=== PATIENT | male | born 1970 | race Caucasian/White ===

== ENCOUNTER 2019-01-16 14:13 | Emergency (ER) | payer BC ==
--- NOTE | 2019-01-16 15:00 | EDM.PDOC ---
ED HPI GENERAL MEDICAL PROBLEM - General Chief Complaint: Lower Extremity Injury/Pain Stated Complaint: RT FOOT INJURY Time Seen by Provider: 01/16/19 14:27 Source of Information: Reports: Patient, RN Notes Reviewed History Limitations: Reports: No Limitations - History of Present Illness INITIAL COMMENTS - FREE TEXT/NARRATIVE: Patient is a 48 her old male who presents to the ED for the evaluation of a right foot injury. The patient states that on Sunday he was working outdoors with an auger when someone hit the wrong switch in the auger started moving, and he tripped over it to avoid being hit by it, as this was an electric power auger. He did note a mild abrasion to the top of his right foot and does have some swelling into his right foot. He states that he hasn't been able to bear much weight on this and has been using crutches. He did try to go to the [facility] and they advised him to come to the ER for further evaluation. He has not been taking any pain medications for pain for this, however he has been icing and elevating the extremity. The patient knows that he is up-to-date on his tetanus in last 10 years but is unsure if it is within the last 5. He would rate his pain at a 7 out of 10 today. There is also no bruising noted to the right dorsum of his foot. Right Feet Pain Score (Numeric/FACES): 7 - Related Data Allergies Allergy/AdvReac Type Severity Reaction Status Date / Time No Known Allergies Allergy Verified 01/16/19 14:28 Home Meds: Home Meds . [No Known Home Meds] 01/16/19 [History] Past Medical History - Past Health History Medical/Surgical History: Denies Medical/Surgical History Social & Family History - Tobacco Use Smoking Status *Q: Current Every Day Smoker Years of Tobacco use: 20 Packs/Tins Daily: 0.7 - Caffeine Use Caffeine Use: Reports: Soda, Tea - Recreational Drug Use Recreational Drug Use: No Review of Systems - Review of Systems Review Of Systems: See Below Constitutional: Reports: No Symptoms Eyes: Reports: No Symptoms Ears: Reports: No Symptoms Nose: Reports: No Symptoms Mouth/Throat: Reports: No Symptoms Respiratory: Reports: No Symptoms Cardiovascular: Reports: No Symptoms GI/Abdominal: Reports: No Symptoms Genitourinary: Reports: No Symptoms Musculoskeletal: Reports: Foot Pain (right mid foot) Skin: Reports: No Symptoms Neurological: Reports: No Symptoms Psychiatric: Reports: No Symptoms ED EXAM, GENERAL - Physical Exam Exam: See Below Exam Limited By: No Limitations General Appearance: Alert, WD/WN, No Apparent Distress Eye Exam: Bilateral Eye: Normal Inspection Ears: Normal External Exam Nose: Normal Inspection Throat/Mouth: Normal Inspection Head: Atraumatic, Normocephalic Neck: Normal Inspection Respiratory/Chest: No Respiratory Distress, Lungs Clear, Normal Breath Sounds, No Accessory Muscle Use, Chest Non-Tender Cardiovascular: Normal Peripheral Pulses, Regular Rate, Rhythm, No Murmur Peripheral Pulses: 2+: Dorsalis Pedis (R) (Hard to appreciate due to swelling, but is present), 3+: Dorsalis Pedis (L) Extremities: Normal Capillary Refill, Limited Range of Motion (d/t pain in right foot). No: Mottled, Pallor Neurological: Alert, Oriented, Normal Cognition, No Motor/Sensory Deficits Psychiatric: Normal Affect, Normal Mood Skin Exam: Warm, Dry, Normal Color, No Rash, Other (abrasion to dorsum of right midfoot) ED TRAUMA EXTREMITY PROCEDURES - Splinting Right Lower Extremity Splint Site: right lower extremity Pre-Procedure NV Status: Normal Post-Procedure NV Status: Normal Splint Material: Fiberglass Splint Design: Posterior (short leg) Applied & Form Fitted By: Provider (with [employer]-student) Provider Post-Splint Application NV Check: NV Status Normal, Good Position Complications: No Course - Vital Signs Last Recorded V/S: Last Vital Signs Temp 97.1 F 01/16/19 14:28 Pulse 96 01/16/19 14:28 Resp 20 01/16/19 14:28 BP 147/94 H 01/16/19 14:28 Pulse Ox 99 01/16/19 14:28 - Orders/Labs/Meds Meds: Medications Discontinued Medications Generic Name Dose Route Start Last Admin Trade Name Freq PRN Reason Stop Dose Admin Ketorolac Tromethamine 30 mg 01/16/19 15:11 01/16/19 15:21 Toradol IM 01/16/19 15:12 Not Given ONETIME ONE - Re-Assessments/Exams Free Text/Narrative Re-Assessment/Exam: 01/16/19 15:06 Patient presents to the ED for the evaluation of a right foot injury. I did order a right foot x-ray to be done to further evaluate, this does demonstrate a second third and fourth linear metatarsal breaks, consistent with a Lisfranc fracture in nature. These do appear well aligned however. This x-ray was reviewed with Dr. Stack as well. I will splint the patient's foot and recommend that he continues to be nonweightbearing until he is evaluated by orthopedics and is told otherwise. Departure - Departure Time of Disposition: 15:09 Disposition: Home, Self-Care 01 Condition: Fair Clinical Impression: Closed fracture of metatarsal bone Metatarsal fracture Qualifiers: Encounter type: initial encounter Metatarsal bone: second Fracture type: closed Fracture alignment: nondisplaced Laterality: right Qualified Code(s): S92.324A - Nondisplaced fracture of second metatarsal bone, right foot, initial encounter for closed fracture Fx metatarsal-closed Qualifiers: Encounter type: initial encounter Metatarsal bone: third Fracture alignment: nondisplaced Laterality: right Qualified Code(s): S92.334A - Nondisplaced fracture of third metatarsal bone, right foot, initial encounter for closed fracture - Discharge Information *PRESCRIPTION DRUG MONITORING PROGRAM REVIEWED*: No *COPY OF PRESCRIPTION DRUG MONITORING REPORT IN PATIENT MAXIMO: No Instructions: Crutch Use, Adult, [id number], Lisfranc Midfoot Injury, Pain Medicine Instructions, [id number] Referrals: Barbara Paredes NP [Primary Care Provider] - Forms: ED Department Discharge Additional Instructions: You have been evaluated in the ED for your right foot pain. Your x-ray demonstrated that you have fractured her second, third, fourth metatarsals. These are the bones in your midfoot. This is consistent with a Lisfranc fracture, you will need to be completely nonweightbearing with crutch use to allow this to heal appropriately, and so that you do not have to have foot surgery. Please use ice as tolerated to the affected area. These elevate the leg for further pain relief. You may take Tylenol 500 mg or ibuprofen 600mg q6 hrs for pain relief. Do not exceed 4000mg tylenol, Do not exceed 3200mg ibuprofen in a 24 hour time period. Please call Ortho for follow-up and further evaluation with Dr. Bridger Palafox, at the [facility] in [facility] [place]. The telephone number is [phone]. Please call and set up an appointment as soon as possible for further management. Please keep the splint in place until you are evaluated by Dr. Pal[facility]. Please return to ED if your symptoms should change or worsen.
[2019-01-16] MEDS ORDERED: Ketorolac 30 MG/ML SDV IM ONE (15:11)
--- NOTE | 2019-01-16 15:45 | CR ---
Right foot: Four views of the right foot were obtained. Comparison: No prior foot exam. Minimal plantar spur is noted. Very minimal osteophytes are noted within the first MTP joint. Nondisplaced fractures are seen within the base of the second, third and fourth metatarsals. No additional fracture or other abnormality is seen. Soft tissue swelling is noted. Impression: 1. Nondisplaced fractures within the base of the second, third and fourth metatarsals. 2. Other incidental findings. Diagnostic code #3
== END 2019-01-16 15:46 | disposition home or self-care (01) ==
LOC: SUPCPDRO 14:13 → JD.ED 14:13
DX: S92.334A Nondisplaced fracture of third metatarsal bone, right foot, initial encounter for closed fracture (principal); S92.324A Nondisplaced fracture of second metatarsal bone, right foot, initial encounter for closed fracture; F17.210 Nicotine dependence, cigarettes, uncomplicated; W18.09XA Striking against other object with subsequent fall, initial encounter
CPT/HCPCS: 29125; 29515; 73630-26-RT; 73630-RT; 99283; 99283-25

== ENCOUNTER 2021-06-01 21:09 | Emergency (ER) | payer BC ==
--- NOTE | 2021-06-01 21:33 | EDM.PDOC ---
ED HPI GENERAL MEDICAL PROBLEM - General Chief Complaint: Abdominal Pain Stated Complaint: VOMITTING Time Seen by Provider: 06/01/21 22:25 - History of Present Illness INITIAL COMMENTS - FREE TEXT/NARRATIVE: 50-year-old male presents the emergency room with abdominal pain. This started shortly after supper the patient ate air fried shrimp and Bulgarian fries. Shortly after this he went to lay down he developed pretty significant abdominal pain nausea and vomiting. Now he has dry heaves. The pain is no better said no diarrhea no constipation. He is not aware of any fevers or chills. He has no significant history of abdominal surgeries. The pain is really quite severe. Patient sign of any chest pain chest pressure breathing difficulties or shortness of breath. Pain does not extend into his legs. Abdominal Pain Score (Numeric/FACES): 8 - Related Data Allergies Allergy/AdvReac Type Severity Reaction Status Date / Time No Known Allergies Allergy Verified 06/01/21 21:24 Home Meds: Home Meds Aspirin 1 tab PO DAILY 06/01/21 [History] Fish Oil/[place]-3 Fatty Acids [Fish Oil 1,000 MG] 1 tab PO DAILY 06/01/21 [ History] atorvaSTATin Calcium [Lipitor] 1 tab PO DAILY 06/01/21 [History] Past Medical History - Past Health History Medical/Surgical History: Denies Medical/Surgical History Social & Family History - Caffeine Use Caffeine Use: Reports: Soda, Tea ED ROS GENERAL - Review of Systems Review Of Systems: See Below Constitutional: Reports: No Symptoms HEENT: Reports: No Symptoms Respiratory: Reports: No Symptoms Cardiovascular: Reports: No Symptoms GI/Abdominal: Reports: Abdominal Pain, Nausea, Vomiting Musculoskeletal: Reports: No Symptoms Skin: Reports: No Symptoms Neurological: Reports: No Symptoms Psychiatric: Reports: No Symptoms Hematologic/Lymphatic: Reports: No Symptoms Immunologic: Reports: No Symptoms ED EXAM, GENERAL - Physical Exam Exam: See Below Exam Limited By: No Limitations General Appearance: Alert, Moderate Distress (From the pain) Head: Atraumatic, Normocephalic Neck: Normal Inspection, Supple, Non-Tender, Full Range of Motion Respiratory/Chest: No Respiratory Distress, Lungs Clear, Normal Breath Sounds Cardiovascular: Regular Rate, Rhythm, No Edema, No Murmur GI/Abdominal: Normal Bowel Sounds, Soft, Tender (This is just superior to the umbilicus and radiates into the right lower quadrant this area is tender with palpation no rigidity no rebound no guarding.), Other Rectal (Males) Exam: Normal Exam, Normal Rectal Tone, Prostate Normal Back Exam: Normal Inspection, Full Range of Motion. No: CVA Tenderness (L), CVA Tenderness (R) Neurological: Alert, Oriented, Normal Cognition Skin Exam: Warm, Dry, Intact Course - Vital Signs Last Recorded V/S: Last Vital Signs Temp 36.5 C 06/01/21 21:29 Pulse 76 06/01/21 21:29 Resp 28 H 06/01/21 21:29 BP 171/94 H 06/01/21 21:29 Pulse Ox 100 06/01/21 21:29 - Orders/Labs/Meds Orders: Active Orders 24 hr Category Date Time Status Abdomen Pelvis w Cont [CT] Stat Exams 06/01/21 22:44 Taken Lactated Ringers [Ringers, Lactated] 1,000 ml Med 06/01/21 22:45 Active IV ASDIRECTED Medication Orders Lactated Ringer's (Ringers, Lactated) 1,000 mls @ 150 mls/hr IV ASDIRECTED TAO Labs: Laboratory Tests 06/01/21 06/01/21 06/01/21 Range/Units 21:30 21:40 21:40 WBC 16.84 H (4.23-9.07) K/mm3 RBC 5.07 (4.63-6.08) M/mm3 Hgb 14.9 (13.7-17.5) gm/dl Hct 44.3 (40.1-51.0) % MCV 87.4 (79.0-92.2) fl MCH 29.4 (25.7-32.2) pg MCHC 33.6 (32.2-35.5) g/dl RDW Std Deviation 43.7 (35.1-43.9) fL Plt Count 317 (163-337) K/mm3 MPV 9.7 (9.4-12.3) fl Neutrophils % (Manual) 72 H (40-60) % Band Neutrophils % 0 (0-10) % Lymphocytes % (Manual) 21 (20-40) % Atypical Lymphs % 0 % Monocytes % (Manual) 4 (2-10) % Eosinophils % (Manual) 3 (0.8-7.0) % Basophils % (Manual) 0 L (0.2-1.2) Toxic Granulation Few Platelet Estimate Adequate RBC Morph Comment Normal Sodium 145 (136-145) mEq/L Potassium 3.9 (3.5-5.1) mEq/L Chloride 105 (98-107) mEq/L Carbon Dioxide 24 (21-32) mEq/L Anion Gap 19.9 H (5-15) BUN 15 (7-18) mg/dL Creatinine 1.1 (0.7-1.3) mg/dL Est Cr Clr Drug Dosing 90.14 mL/min Estimated GFR (MDRD) > 60 (>60) mL/min BUN/Creatinine Ratio 13.6 L (14-18) Glucose 168 H (70-99) mg/dL Calcium 9.1 (8.5-10.1) mg/dL Total Bilirubin 0.4 (0.2-1.0) mg/dL AST 21 (15-37) U/L ALT 45 (16-63) U/L Alkaline Phosphatase 111 (46-116) U/L Total Protein 8.0 (6.4-8.2) g/dl Albumin 4.4 (3.4-5.0) g/dl Globulin 3.6 gm/dL Albumin/Globulin Ratio 1.2 (1-2) Urine Color Yellow (Yellow) Urine Appearance Clear (Clear) Urine pH 6.0 (5.0-8.0) Ur Specific [place] > or = 1.030 (1.005-1.030) Urine Protein Negative (Negative) Urine Glucose (UA) Negative (Negative) Urine Ketones Trace H (Negative) Urine Occult Blood Negative (Negative) Urine Nitrite Negative (Negative) Urine Bilirubin Negative (Negative) Urine Urobilinogen 0.2 (0.2-1.0) Ur Leukocyte Esterase Negative (Negative) Urine RBC Not seen (0-5) /hpf Urine WBC 0-5 (0-5) /hpf Ur Squamous Epith Cells Not seen (0-5) /hpf Urine Bacteria Few (FEW) /hpf Urine Mucus Moderate H (FEW) /hpf Meds: Medications Generic Name Dose Route Start Last Admin Trade Name Freq PRN Reason Stop Dose Admin Lactated Ringer's 1,000 mls @ 150 mls/hr 06/01/21 22:45 Ringers, Lactated IV ASDIRECTED TAO Discontinued Medications Generic Name Dose Route Start Last Admin Trade Name Freq PRN Reason Stop Dose Admin Hydromorphone HCl 1 mg 06/01/21 22:33 06/01/21 22:41 Hydromorphone 1 Mg/Ml Syringe IVPUSH 06/01/21 22:34 1 mg ONETIME ONE Administration Lactated Ringer's 1,000 mls @ 999 mls/hr 06/01/21 22:33 06/01/21 22:41 Ringers, Lactated IV 06/01/21 23:33 999 mls/hr .BOLUS ONE Administration Ondansetron HCl 4 mg 06/01/21 22:33 06/01/21 22:41 Ondansetron 4 Mg/2 Ml Sdv IVPUSH 06/01/21 22:34 4 mg ONETIME ONE Administration - Re-Assessments/Exams Free Text/Narrative Re-Assessment/Exam: 06/02/21 00:12 CT evaluation is nondiagnostic at this point he has some cholelithiasis but no obvious signs of acute cholecystitis on CT there is nonspecific thickening in t he gastric wall. Discussed the findings with the patient and his at this point we will get the patient back in for gallbladder ultrasound. I will give him a few pain pills from the machine out in the waiting room hydrocodone No. 20 1 or 2 every 6 hours Departure - Departure Time of Disposition: 00:14 Disposition: Home, Self-Care 01 Clinical Impression: Right sided abdominal pain - Discharge Information Referrals: Barbara Paredes, CHIEF LENDING OFFICER [Primary Care Provider] - Forms: ED Department Discharge Additional Instructions: Return to the emergency room with any questions problems or worsening symptoms. I am giving you some pain medication out of the machine out in the waiting room take 1 or 2 every 6 hours only if absolutely needed for the pain. If using this medication on a regular basis it can cause constipation take some MiraLAX or a good stool softener with it. Allow yourself 12 hours after using this medication before driving or returning to work. You should be contacted by the radiology department here to schedule your gallbladder ultrasound. Follow-up in the [place] [facility] the day after the gallbladder ultrasound is done to get the results of this. Sepsis Event Note (ED) - Focused Exam Vital Signs: Vital Signs Temp Pulse Resp BP Pulse Ox 06/01/21 21:29 36.5 C 76 28 H 171/94 H 100 - My Orders Last 24 Hours: My Active Orders 06/01/21 22:44 Abdomen Pelvis w Cont [CT] Stat 06/01/21 22:45 Lactated Ringers [Ringers, Lactated] 1,000 ml IV ASDIRECTED - Assessment/Plan Last 24 Hours: My Active Orders 06/01/21 22:44 Abdomen Pelvis w Cont [CT] Stat 06/01/21 22:45 Lactated Ringers [Ringers, Lactated] 1,000 ml IV ASDIRECTED
[2021-06-01] MEDS ORDERED: HYDROmorphone 1 MG/ML Syringe IVPUSH ONE (22:33)
[2021-06-01] MEDS ORDERED: Ondansetron 4 MG/2 ML SDV IVPUSH ONE (22:33)
[2021-06-01] MEDS ORDERED: Lactated Ringers 1,000 ML IV ONE (22:33)
[2021-06-01] MEDS ORDERED: Lactated Ringers 1,000 ML IV SCH (22:45)
--- NOTE | 2021-06-02 06:37 | CT ---
CT abdomen and pelvis Technique: Multiple axial sections were obtained from above the dome of the diaphragm inferiorly through the pubic symphysis. Intravenous contrast was utilized. No oral contrast has been given. Delayed images were also obtained through the bladder. Reconstructed coronal and sagittal images were obtained. Comparison: No prior abdominal imaging is available. Findings: Visualized lung bases show nothing acute. Liver contains no focal parenchymal abnormality. Spleen size is normal. Adrenal glands show no nodule. Soft tissue density is noted within the gallbladder as well as a calcification which is presumably due to several gallstones. Splenic wall is somewhat thickened most likely relating to nondistention. Kidneys show symmetric contrast enhancement. No hydronephrosis or mass is seen. Delayed images show contrast within the distal ureters and within the bladder. Abdominal aorta shows minimal atherosclerotic change. No aneurysm is seen. No retroperitoneal adenopathy or mesenteric abnormalities are seen. Appendix is seen which is normal in size. No pelvic mass or adenopathy is seen. No free fluid or inflammatory change is seen. Bone window settings were reviewed which show minimal degenerative change within the lower thoracic spine. No acute osseous abnormality is appreciated. Impression: 1. Several gallstones within the gallbladder. 2. Stomach wall appears thickened most likely relating to nondistention. 3. Nothing acute is otherwise seen on CT study of the abdomen and pelvis. Diagnostic code #2 I agree with preliminary report from [facility], finalized on 06/02/21, 1:01 AM CDT, code 1
== END 2021-06-02 00:35 | disposition home or self-care (01) ==
LOC: JD.ED 21:09
DX: R10.31 Right lower quadrant pain (principal); R11.2 Nausea with vomiting, unspecified; Z79.82 Long term (current) use of aspirin
CPT/HCPCS: 36415; 74177; 80053; 81001; 85007; 85027; 96374; 96375; 99284; J1170; J2405; J7120

== ENCOUNTER 2021-06-29 06:23 | Day surgery (SDC) | payer BC ==
[~2021-06-29 06:23] MED LIST: Lactated Ringers 1,000 ML IV SCH; Lidocaine 1%/Sod Bicarbonate in NS 8.4% 1 ML Syringe IDERM PRN; Sodium Chloride 0.9% 10 ML Syringe FLUSH PRN
[2021-06-29] MEDS ORDERED: Lidocaine 1% with EPINEPHrine 1:100,000 10 ML MDV ONE (06:31)
--- NOTE | 2021-06-29 06:36 | PCM.PREANE ---
Preanesthetic Assessment - Procedure Proposed Procedure: Laparoscopic Cholecystectomy - Anesthesia/Transfusion/Family Hx Anesthesia History: Prior Anesthesia Without Reaction Family History of Anesthesia Reaction: No Transfusion History: No Prior Transfusion(s) Intubation History: Unknown - Review of Systems General: No Symptoms Pulmonary: No Symptoms (Smoker: 1/2 ppd times 30 years, ETOH: rarely) Cardiovascular: No Symptoms (Elevated cholesterol, negative heart catheterization), Palpitations Gastrointestinal: No Symptoms, Decreased Appetite Neurological: No Symptoms Other: Reports: None - Physical Assessment NPO Status Date: 06/28/21 NPO Status Time: 20:00 Vital Signs: HR: 64 Sat: 97% Temp: 97.8 B/P: 124/98 Resp: 16 Height: 1.83 m Weight: 83 kg ASA Class: 2 Mental Status: Alert & Oriented x3 Airway Class: Mallampati = 2 Dentition: Reports: Normal Dentition, Caries Thyro-Mental Finger Breadths: 3 Mouth Opening Finger Breadths: 3 ROM/Head Extension: Full Lungs: Clear to Auscultation, Normal Respiratory Effort Cardiovascular: Regular Rate, Regular Rhythm, No Murmurs - Lab Values: All labs reviewed and noted and within acceptable ranges to proceed with scheduled procedure. - Imaging/EKG Impressions: EKG: SB with incomplete Rt BBB. Echocardiogram: 04/2021:EF= 60-65% Heart catheterization: no ischemia - Allergies Allergies/Adverse Reactions: Allergies Allergy/AdvReac Type Severity Reaction Status Date / Time No Known Allergies Allergy Verified 06/28/21 16:08 - Anesthesia Plan Pre-Op Medication Ordered: None - Acknowledgements Anesthesia Type Planned: General Anesthesia Pt an Appropriate Candidate for the Planned Anesthesia: Yes Alternatives and Risks of Anesthesia Discussed w Pt/Guardian: Yes Pt/Guardian Understands and Agrees with Anesthesia Plan: Yes PreAnesthesia Questionnaire - Past Health History Medical/Surgical History: Denies Medical/Surgical History HEENT History: Reports: Impaired Vision Cardiovascular History: Reports: High Cholesterol, Hypertension, Other (See Below) Other Cardiovascular History: heart cath Respiratory History: Reports: None Gastrointestinal History: Reports: None Genitourinary History: Reports: None 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 Musculoskeletal History: Reports: Gout, Other (See Below) Other Musculoskeletal History: joint pain, lateral epicondylitis, right foot surgery Neurological History: Reports: None Psychiatric History: Reports: None Endocrine/Metabolic History: Reports: None Hematologic History: Reports: None Immunologic History: Reports: None Oncologic (Cancer) History: Reports: None Dermatologic History: Reports: None, Psoriasis - Infectious Disease History Infectious Disease History: Reports: Novel Coronavirus - Past Surgical History Head Surgeries/Procedures: Reports: None HEENT Surgical History: Reports: Eye Surgery Cardiovascular Surgical History: Reports: None Respiratory Surgical History: Reports: None GI Surgical History: Reports: None Female Surgical History: Reports: None Male Surgical History: Reports: None Endocrine Surgical History: Reports: None Neurological Surgical History: Reports: None Musculoskeletal Surgical History: Reports: None - SUBSTANCE USE Tobacco Use Status *Q: Current Every Day Tobacco User - HOME MEDS Home Medications: Home Meds Aspirin 1 tab PO DAILY 06/01/21 [History] Fish Oil/[place]-3 Fatty Acids [Fish Oil 1,000 MG] 1 tab PO DAILY 06/01/21 [History] atorvaSTATin Calcium [Lipitor] 1 tab PO DAILY 06/01/21 [History] Hydrocodone/Acetaminophen [HYDROcodone-Acetaminophen 5-325 MG] 1 tab PO Q4H PRN 06/28/21 [History] - CURRENT (IN HOUSE) MEDS Current Meds: Current Medications Lactated Ringer's (Ringers, Lactated) 1,000 mls @ 125 mls/hr IV ASDIRECTED TAO Stop: 06/29/21 23:00 Lidocaine/Sodium Bicarbonate (Lidocaine 1%/Sod Bicarbonate In Ns 8.4% 1 Ml Syringe) 0.25 ml IDERM ONETIME PRN PRN Reason: Prior to IV Start Stop: 06/29/21 18:00 Sodium Chloride (Sodium Chloride 0.9% 10 Ml Syringe) 10 ml FLUSH ASDIRECTED PRN PRN Reason: Keep Vein Open Stop: 06/29/21 18:00
[2021-06-29] MEDS: Bupivacaine 0.5%/EPINEPHrine 1:200,000 50 ML MDV ONE ×2 (06:53→07:54)
[2021-06-29] MEDS: Lidocaine 1% with EPINEPHrine 1:100,000 10 ML MDV ONE ×2 (06:54→07:54)
[2021-06-29] MEDS ORDERED: Ketorolac 30 MG/ML SDV ONE (07:04)
[2021-06-29] MEDS ORDERED: Lactated Ringers 1,000 ML ONE (07:04)
[2021-06-29] MEDS ORDERED: Rocuronium 50 MG/5 ML Vial ONE (07:04)
[2021-06-29] MEDS ORDERED: ceFAZolin 1 GM Vial ONE (07:04)
[2021-06-29] MEDS ORDERED: Dexamethasone 4 MG/ML 5 ML MDV ONE (07:04)
[2021-06-29] MEDS ORDERED: Ondansetron 4 MG/2 ML SDV ONE (07:04)
[2021-06-29] MEDS ORDERED: HYDROmorphone 1 MG/ML Syringe ONE (07:04)
[2021-06-29] MEDS ORDERED: Midazolam 1 MG/ML 2 ML SDV ONE (07:05)
[2021-06-29] MEDS ORDERED: fentaNYL 250 MCG/5 ML SDV ONE (07:05)
[2021-06-29] MEDS ORDERED: Propofol 200 MG/20 ML SDV ONE (07:05)
[2021-06-29] MEDS ORDERED: ePHEDrine 50 MG/ML SDV IVPUSH PRN (07:47)
[2021-06-29] MEDS ORDERED: HYDROmorphone 0.5 MG/0.5 ML Syringe IVPUSH PRN (07:47)
[2021-06-29] MEDS ORDERED: fentaNYL 100 MCG/2 ML SDV IVPUSH PRN (07:47)
[2021-06-29] MEDS ORDERED: diphenhydrAMINE 50 MG/ML SDV IVPUSH PRN (07:47)
[2021-06-29] MEDS ORDERED: Albuterol 0.083% 2.5 MG/3 ML Neb Soln NEB PRN (07:47)
[2021-06-29] MEDS ORDERED: Ondansetron 4 MG/2 ML SDV IVPUSH PRN (07:47)
[2021-06-29] MEDS ORDERED: ePHEDrine 50 MG/ML SDV ONE (07:50)
[2021-06-29] MEDS ORDERED: Labetalol 100 MG/20 ML MDV ONE (08:00)
[2021-06-29] MEDS ORDERED: fentaNYL 100 MCG/2 ML SDV ONE (08:52)
--- NOTE | 2021-06-29 09:06 | PCM.OPNOTE ---
- General Post-Op/Procedure Note Date of Surgery/Procedure: 06/29/21 Operative Procedure(s): laparoscopic cholecystectomy Findings: findings of cholecystitis Pre Op Diagnosis: symptomatic cholelithiasis Post-Op Diagnosis: same Primary Surgeon: Vanessa Mayorga Anesthesia Provider: Flora Hernandez Pathology: gallbladder with contents Fluid Replacement, Intraop: 1,400 Output, Urine Amount: 0 EBL in mLs: 50 Complications: none apparent Condition: Good
--- NOTE | 2021-06-29 09:16 | PCM.PRNOTE ---
- Free Text/Narrative Note: OPERATIVE REPORT Date of Surgery/Procedure: June 29, 2021 Operative Procedure(s): laparoscopic cholecystectomy Findings: gallbladder with changes of cholecystitis Pre Op Diagnosis: Symptomatic cholelithiasis Post-Op Diagnosis: Same Anesthesia Technique: General ET Tube Primary Surgeon: Vanessa Mayorga MD Anesthesia Provider: Flora Hernandez CRNA Pathology: Gallbladder with contents Fluid Replacement, Intraop: 1400cc Output, Urine Amount: 0 cc EBL: 50cc Drain/Tube Comments: none Indication for the procedure: The patient is a 50-year-old gentleman who presented to my office with findings of symptomatic cholelithiasis. He reported nightly vomiting and difficulty tolerating food. He had lost 14-15lbs. The patient was counseled for laparoscopic cholecystectomy, with possible conversion to open. After discussion of the risks of infection, bleeding and injury to the bile duct, the patient's consent was obtained. Description of the procedure: The patient presented to the outpatient holding area on the day of the procedure. The history and physical were verified and consent was present and on the chart. The patient was taken back to the operating room and placed in supine position on the operating table. SCD boots were placed and functional prior to the start of the procedure. Preoperative antibiotics were administered according to SCIP protocol, Ancef 2 g IV. A surgical timeout was performed. The patient then had induction of general anesthesia and was intubated without difficulty. The patient was prepped and draped in standard surgical fashion. We began by making an infraumbilical vertical incision and deepened this down through subcutaneous fat to the level of the fascia. This was grasped and incised. We bluntly entered through the peritoneum. A stay suture of 0 Vicryl was placed in the fascia. The 12 mm balloon Russell port was then inserted into the abdomen and the balloon inflated. Insufflation was attached and we had appropriate opening pressures. The abdomen was then insufflated to 15 mmHg. We inserted a scope into the abdomen and inspected the area where we had entered. There was no evidence of injury to surrounding structures with no evidence of bile or bleeding. A TAP block was then performed using 1% lidocaine with epinephrine mixed with 0.5% bupivacaine with epinephrine. We then proceeded with placing our additional ports. A 5mm port was placed in the epigastric region. Two additional 5mm ports placed under direct visualization in the right upper quadrant. The patient was then positioned with head up and right side up to facilitate exposure of the gallbladder. Once we had sufficiently exposed the dome of the gallbladder, this was grasped and retracted cephalad. We proceeded with our dissection to expose the cystic duct and cystic artery. We did have a critical view. The cystic duct and artery were then clipped and cut using endoscopic scissors. We then proceeded to fully dissect the gallbladder off of the cystic plate using the Bovie device. The gallbladder was then placed in the Endo Catch bag and withdrawn towards the umbilical port. We then inspected the area of the dissection. There was no significant bleeding after hemostasis was achieved with the Bovie. The spilled blood was suctioned and removed with a Ray-Jennifer. We then inspected the port sites and desufflated the abdomen. The ports were then removed. The gallbladder was withdrawn through the umbilical port site. We then proceeded to close the umbilical port site using an 0 Vicryl stitch. We had good closure of the fascia. A superficial 4-0 monocryl suture was used to approximate the skin. The skin was covered with Dermabond surgical glue. The patient tolerated the procedure well and was extubated without difficulty. The patient was transported to the PACU in stable condition. All sponge, needle counts correct. No immediate complications noted. Complications: None apparent Condition: Good Vanessa Mayorga MD General Surgery
--- NOTE | 2021-06-29 09:26 | PCM.POSTAN ---
POST ANESTHESIA ASSESSMENT - MENTAL STATUS Mental Status: Alert - VITAL SIGNS Vital Signs: Last Vital Signs Temp 97.9 06/29/21910 Pulse 78 06/29/21 0911 Resp 16 06/29/21910 BP 121/86 06/29/21910 Pulse Ox 92% 06/29/21910 - RESPIRATORY Respiratory Status: Respiratory Rate WNL, Airway Patent, O2 Saturation Stable, Supplemental Oxygen - CARDIOVASCULAR CV Status: Pulse Rate WNL, Blood Pressure Stable - GASTROINTESTINAL GI Status: No Symptoms - POST OP HYDRATION Hydration Status: Adequate & Stable
--- NOTE | 2021-06-29 11:44 | PCM48HPAN ---
Post Anesthesia Note - EVALUATION WITHIN 48HRS OF ANESTHETIC Vital Signs in Normal Range: Yes Patient Participated in Evaluation: Yes Respiratory Function Stable: Yes Airway Patent: Yes Cardiovascular Function Stable: Yes Hydration Status Stable: Yes Pain Control Satisfactory: Yes Nausea and Vomiting Control Satisfactory: Yes Mental Status Recovered: Yes Vital Signs: Last Vital Signs Temp 36.7 C 06/29/21 09:40 Pulse 60 06/29/21 09:40 Resp 15 06/29/21 09:40 BP 120/72 06/29/21 09:40 Pulse Ox 94 L 06/29/21 09:40
== END 2021-06-29 11:05 | disposition home or self-care (01) ==
LOC: JD.SDS 06:23
PROVIDERS: ATTEND Surgery
DX: K80.12 Calculus of gallbladder with acute and chronic cholecystitis without obstruction (principal); F17.210 Nicotine dependence, cigarettes, uncomplicated; I10 Essential (primary) hypertension; E78.00 Pure hypercholesterolemia, unspecified; Z79.899 Other long term (current) drug therapy; Z79.82 Long term (current) use of aspirin
CPT/HCPCS: 47562; J0690; J1100; J1170; J1885; J2250; J2405; J2704; J2710; J3010; J3490; J7120; 00790

== ENCOUNTER 2022-07-12 10:22 | Emergency (ER) | payer BC | END 2022-07-12 13:24 | disposition home or self-care (01) | LOC: JD.ED 10:22 | DX: R55 Syncope and collapse (principal); F17.210 Nicotine dependence, cigarettes, uncomplicated; Z90.49 Acquired absence of other specified parts of digestive tract | CPT/HCPCS: 36415; 71045; 71045-26; 80053; 83880; 84484; 85025; 85610; 85730; 93005; 99284 ==